=== PATIENT | female | born 1940 | race Caucasian/White ===

== ENCOUNTER → 2019-04-21 | Outpatient (CLI) | payer MEDICARE ==
[~2019-04-21] MED LIST: ASPI-496 PO; CALC1CAP8 PO; CARV3.122 PO; CLOP75TA52 PO; EZET10TA18 PO; FERR160T5 PO; HYDR-3237 PO; METF500T17 PO; MULT-642 PO; Oxygen INH; PANT40TA5 PO; REGADENOSON 0.4 MG/5 ML SYRINGE ONE; ROSU20TA2 PO
== END | disposition home or self-care (01) ==
LOC: CFH 10:39
PROVIDERS: ATTEND Internal Medicine Cardiovascular Disease
DX: I08.1 Rheumatic disorders of both mitral and tricuspid valves (principal); I25.5 Ischemic cardiomyopathy; E78.5 Hyperlipidemia, unspecified; J44.9 Chronic obstructive pulmonary disease, unspecified; Z98.61 Coronary angioplasty status
CPT/HCPCS: 78452; 93017; 93306; A9502; J2785

== ENCOUNTER 2020-08-10 05:44 | Day surgery (SDC) | payer MEDICARE ==
[~2020-08-10] VITALS: Ht 167.6 cm; Wt 79.1 kg
[~2020-08-10 05:44] MED LIST changes: -EZET10TA18 PO; +EZET10TA70 PO; -PANT40TA5 PO; +PANT40TA6 PO; -REGADENOSON 0.4 MG/5 ML SYRINGE ONE
[2020-08-10 06:21] VITALS: BP 121/70
[2020-08-10] MEDS ORDERED: PLEASE ENTER HEIGHT AND WEIGHT MC SCH (06:30)
[2020-08-10] MEDS ORDERED: SODIUM CHLORIDE 0.9% 1,000 ML IV SCH (06:30)
[2020-08-10] MEDS ORDERED: CEFAZOLIN PMX 1GM/50ML 50 ML IVPB ONE (06:30)
[2020-08-10] MEDS ORDERED: FORM20VI NEB (06:36)
[2020-08-10] MEDS ORDERED: GLIP5TAB10 PO (06:36)
[2020-08-10] MEDS ORDERED: EVOL140P3 SQ (06:36)
[2020-08-10 07:07] LABS: BASOPHILS % (AUTO) 1 % (0-1); EOSINOPHILS % (AUTO) 1 % (1-7); LYMPHOCYTES % (AUTO) 20 % (22-44); MEAN CORPUSCULAR HEMOGLOBIN 26.1 pg (27.0-34.8); MEAN CORPUSCULAR HGB CONC 31.8 g/dL (32.4-35.8); MEAN PLATELET VOLUME 10.1 fL (7.4-10.4); MONOCYTES % (AUTO) 9 % (2-9); NEUTROPHILS % (AUTO) 69 % (42-75); PLATELET COUNT 168 x10^3/uL (130-400); RED BLOOD COUNT 5.15 x10^6/uL (3.82-5.3); RED CELL DISTRIBUTION WIDTH 14.5 % (9.6-15.2)
[2020-08-10 07:13] LABS: MD NO
[2020-08-10 07:17] LABS: ANION GAP 7 mmol/L (5-15); CALCIUM 8.7 mg/dL (8.5-10.1); CHLORIDE 106 mmol/L (98-107); CREATININE 1.02 mg/dL (0.55-1.02)
[2020-08-10] MEDS ORDERED: LIDOCAINE 1%, 20ML ONE (07:34)
[2020-08-10] MEDS ORDERED: CEFAZOLIN 1,000 MG ONE ×2 (07:34→08:09)
[2020-08-10] MEDS ORDERED: FENTANYL PF 100 MCG/2ML ONE (07:46)
[2020-08-10] MEDS ORDERED: LIDOCAINE-MPF 2% ,5ML ONE (07:49)
[2020-08-10] MEDS ORDERED: ROCURONIUM 10MG/ML,5ML ONE (08:09)
[2020-08-10] MEDS ORDERED: SUCCINYLCHOLINE 20 MG/ML, 10ML ONE (08:09)
[2020-08-10] MEDS ORDERED: ONDANSETRON 2MG/ML, 2ML ONE (08:09)
[2020-08-10] MEDS ORDERED: PROPOFOL 10 MG/ML, 20ML ONE (08:09)
[2020-08-10] MEDS ORDERED: DEXAMETHASONE 4 MG/ML, 1ML ONE (08:09)
[2020-08-10] MEDS ORDERED: KETOROLAC 30 MG/1 ML ONE (08:09)
[2020-08-10] MEDS ORDERED: SUGAMMADEX 200 MG/2 ML IVPush ONE (08:10)
[2020-08-10] MEDS ORDERED: ALBUTEROL HFA 90 MCG/SPRAY ONE (08:10)
[2020-08-10] MEDS ORDERED: EPINEPHRINE 1 MG/ML, 1ML ONE (08:14)
[2020-08-10] MEDS ORDERED: ONDANSETRON 2MG/ML, 2ML IVPush PRN (09:30)
[2020-08-10] MEDS ORDERED: FENTANYL PF 100 MCG/2ML IV PRN (09:30)
[2020-08-10] MEDS ORDERED: EVOLOCUMAB SQ SCH (09:30)
[2020-08-10] MEDS ORDERED: EPHEDRINE 50 MG/ML, 1ML IVPush PRN (09:30)
[2020-08-10] MEDS ORDERED: hydrALAzine 20 MG/ML, 1ML IV PRN (09:30)
[2020-08-10] MEDS ORDERED: OXYcodone 5 MG/5 ML ORAL.SOL UDC PO PRN (09:30)
[2020-08-10] MEDS ORDERED: ACETAMINOPHEN 325 MG TABLET PO PRN (09:30)
[2020-08-10] MEDS ORDERED: PROMETHAZINE 25 MG/ML, 1ML IVPush PRN (09:30)
[2020-08-10] MEDS ORDERED: HYDROmorphone 1 MG/ML, 1ML INJ IVPush PRN (09:30)
[2020-08-10] MEDS ORDERED: HYDROcodone/APAP 5/325 TABLET PO PRN (09:30)
[2020-08-10] MEDS ORDERED: Hold all anticoagulants for 24 hours MC PRN (09:30)
[2020-08-10] MEDS ORDERED: LABETALOL 5MG/ML, 20ML IV PRN (09:30)
[2020-08-10] MEDS ORDERED: CEPH-368 PO (10:58)
[2020-08-10] MEDS ORDERED: ACETAMINOPHEN 325 MG TABLET ONE (11:26)
[2020-08-10] MEDS ORDERED: CARVEDILOL 3.125 MG TABLET PO SCH (21:00)
[2020-08-10] MEDS ORDERED: TEMPLATE NON-FORMULARY MED. (Calcium Carbonate/Vitamin D3** (Calcium 600 + D3 Softgel**) 1 PO SCH (21:00)
[2020-08-10] MEDS ORDERED: SODIUM CHLORIDE FLUSH 10ML SYR IVF SCH (21:00)
[2020-08-10] MEDS ORDERED: TEMPLATE NON-FORMULARY MED. (Rosuvastatin Calcium** (Crestor**) 20 MG) PO SCH (21:00)
[2020-08-10] MEDS ORDERED: PANTOPRAZOLE 40MG TABLET PO SCH (21:00)
[2020-08-10] MEDS ORDERED: FORMOTEROL FUMARATE NEB SCH (21:00)
[2020-08-11] MEDS ORDERED: ASPIRIN 81 MG TABLET EC PO SCH (09:00)
[2020-08-11] MEDS ORDERED: MULTIVITAMIN 1 TABLET PO SCH (09:00)
== END 2020-08-10 12:20 | disposition home or self-care (01) ==
LOC: CACL 05:44
PROVIDERS: ATTEND Internal Medicine Cardiovascular Disease
DX: Z45.02 Encounter for adjustment and management of automatic implantable cardiac defibrillator (principal); I25.5 Ischemic cardiomyopathy; I10 Essential (primary) hypertension; I25.2 Old myocardial infarction; I25.10 Atherosclerotic heart disease of native coronary artery without angina pectoris; E11.9 Type 2 diabetes mellitus without complications; E78.5 Hyperlipidemia, unspecified; J44.9 Chronic obstructive pulmonary disease, unspecified; Z20.828 Contact with and (suspected) exposure to other viral communicable diseases; Z87.891 Personal history of nicotine dependence; Z98.890 Other specified postprocedural states; Z85.828 Personal history of other malignant neoplasm of skin; Z79.82 Long term (current) use of aspirin; Z79.84 Long term (current) use of oral hypoglycemic drugs; Z91.048 Other nonmedicinal substance allergy status
CPT/HCPCS: 33262; 36415; 71046; 80048; 85025; 87635; C1722; J0171; J0330; J0690; J1100; J1885; J2405; J2704; J3010; 33227